=== PATIENT | female | born 1995 | race African-American/Black ===

== ENCOUNTER 2018-02-28 16:29 | Emergency (ER) | payer MEDICAID ==
[~2018-02-28] VITALS: Ht 157.5 cm; Wt 60.3 kg
[2018-02-28 17:24] LABS: APPEARANCE,URINE CLEAR; BILIRUBIN, URINE NEGATIVE (NEGATIVE); COLOR,URINE PALE YELLOW; GLUCOSE, URINE (UA) NEGATIVE (NEGATIVE); KETONES,URINE NEGATIVE (NEGATIVE); LEUKOCYTE ESTERASE ,URINE 1+ (NEGATIVE); NITRITE,URINE NEGATIVE (NEGATIVE); PH,URINE 7 (4.5-8.0); PROTEIN,URINE NEGATIVE (NEGATIVE); UROBILINOGEN,URINE NORMAL MG/DL (0.0-1.0)
--- NOTE | 2018-02-28 17:24 | Emergency Room Report ---
History of Present Illness General Chief Complaint: Female Urogenital Problems Source: Patient Present Illness HPI 22-year-old female patient presents ER complaining of frequency with urination. Also complains of discomfort for the past few days with urination. Reports frequency has been present for the past month, dysuria and present for the past few days. Reports a previous seen by her PCP, states was not given antibiotics at that time because no infection was seen. Denies fever, chest pain, shortness breath, abdominal pain. Denies vaginal discharge. Denies recent sexual activity. Reports currently has Implanon, has been on it for several years, reports does not have regular menstrual periods, states that she normally has spotting. Denies hematuria. Reports drinking lots of water. Denies diabetes, reports recently tested. Allergies: Coded Allergies: No Known Allergies (Unverified , 02/28/18) Patient History Past Medical History: see triage record Last Menstrual Period: IUD Reviewed Nursing Documentation: PMH: Agreed; PSxH: Agreed Nursing Documentation-PMH Past Medical History: No Stated History Review of Systems All Other Systems: negative except mentioned in HPI Physical Exam Vital Signs Date Time Temp Pulse Resp B/P (MAP) Pulse Ox O2 Delivery O2 Flow Rate FiO2 02/28/18 16:43 98.7 64 18 111/69 99 Room Air 98.8 Sp02 EP Interpretation: reviewed, normal General Appearance: well appearing, no apparent distress, alert, GCS 15, non- toxic Head: normocephalic, atraumatic Eyes: bilateral eye normal inspection, bilateral eye PERRL ENT: hearing grossly normal, normal pharynx, no angioedema, normal voice, uvula midline, moist mucus membranes Neck: full range of motion Respiratory: lungs clear, normal breath sounds, no rhonchi, no respiratory distress, no accessory muscle use, no wheezing, speaking full sentences Cardiovascular #1: regular rate, rhythm, no edema Gastrointestinal: non tender, soft, no mass, non-distended, no guarding, no rebound Genitourinary: no CVA tenderness Musculoskeletal: back normal, digits/nails normal, gait/station normal, normal range of motion, non-tender Neurologic: alert, oriented x3, responsive, motor strength/tone normal, sensory intact Psychiatric: mood/affect normal Skin: no rash Medical Decision Making PA Attestation Dr. Pelayo is my supervising Physician whom patient management has been discussed with. Diagnostic Impression: Primary Impression: Frequency of urination ER Course Pt presents to ED c/o urinary symptoms. DDX considered but are not limited to cystitis, pyelonephritis, STI, vaginitis, . VITAL SIGNS are WNL, patient is afebrile. Ordered UA. ER COURSE UA results negative, low suspicion for UTI, does not require treatment with abx. Urine negative. If concern for STI, followup with STI clinic for testing and treatment. Denies STI concern. Frequency may be related to patient reports of increased water intake. Needs followup with and OBGYN for spotting. No hx of syncope, moist mucous membranes, no circumoral pallor, no signs of anemia, does not require labs at this time. Patient is resting comfortably in chair, nontoxic appearing, in no acute distress. Patient states they feel better and is ready to go home. ER precautions given. DISCHARGE -Rx provided for Phenazopyridine for pain. SE turns urine orange. Patient is stable for discharge. Patient resting comfortably, in no acute distress, nontoxic appearing, talking without difficulty. Will provide with patient care instructions and any necessary prescriptions. Patient understands and agrees to treatment plan. Patient encouraged to drink plenty of fluids. Patient to take medication as instructed. Care plan and follow-up instructions provided. Patient questions asked and answered. Reports understanding and agreement to treatment plan. Patient instructed to follow-up with primary care provider in 3 - 5 days. ER precautions given. Patient instructed to return to ER immediately for any new or worsening of symptoms. Including but not limited to fever, abdominal pain , intractable vomiting. - Please note that this Emergency Department Report was dictated using [employer] technology software, occasionally this can lead to erroneous entry secondary to interpretation by the dictation equipment. Labs Test 02/28/18 16:49 Urine Color Pale yellow Urine Appearance Clear Urine pH 7 (4.5-8.0) Urine Specific [place] 1.010 (1.005-1.035) Urine Protein Negative (NEGATIVE) Urine Glucose (UA) Negative (NEGATIVE) Urine Ketones Negative (NEGATIVE) Urine Occult Blood Negative (NEGATIVE) Urine Nitrite Negative (NEGATIVE) Urine Bilirubin Negative (NEGATIVE) Urine Urobilinogen Normal MG/DL (0.0-1.0) Urine Leukocyte Esterase 1+ (NEGATIVE) Urine RBC 0-2 /HPF (0 - 2) Urine WBC 0-2 /HPF (0 - 2) Urine Squamous Epithelial Cells Few /LPF (NONE/OCC) Urine Bacteria Few /HPF (NONE) Urine HCG, Qualitative Negative (NEGATIVE) Last Vital Signs Date Time Temp Pulse Resp B/P (MAP) Pulse Ox O2 Delivery O2 Flow Rate FiO2 02/28/18 16:43 98.7 64 18 111/69 99 Room Air 98.8 Disposition: HOME, SELF-CARE Condition: Stable Scripts Phenazopyridine Hcl* (PYRIDIUM*) 200 Mg Tablet 200 MG ORAL THREE TIMES A DAY, #14 TAB 0 Refills Prov: Kwaku Monroe 02/28/18 Patient Instructions: Interstitial Cystitis Additional Instructions: Followup with primary care provider and followup with and/or OBGYN. Drink plenty of fluids. Take medications as directed. Pyridium has SE of turning urine orange. Patient questions asked and answered. ER precautions given, patient instructed to return to ER immediately for any new or worsening of symptoms. Kwaku Monroe Feb 28, 2018 17:24
[2018-02-28] MEDS ORDERED: PHENAZOPYRIDIN200 MG ORAL (17:38)
[2018-02-28 17:41] VITALS: BP 111/69
[2018-02-28 17:44] VITALS: BP 111/69
== END 2018-02-28 17:46 | disposition home or self-care (01) ==
LOC: EMR 17:20
DX: R35.0 Frequency of micturition (principal)
CPT/HCPCS: 81003; 81025; 99283